=== PATIENT | female | born 1980 | race Caucasian/White ===

== ENCOUNTER 2023-05-18 18:31 | Outpatient (CLI) | payer OTHER, SELFPAY ==
--- NOTE | 2023-05-18 18:30 | CRLHL7_ITS ---
For Patients: As a result of the Century Cures Act, medical imaging exams and procedure reports are released immediately into your electronic medical record. You may view this report before your referring provider. If you have questions, please contact your health care provider. BILATERAL SCREENING MAMMOGRAM WITH COMPUTER-AIDED DETECTION TECHNIQUE: CC and MLO views were obtained. These mammographic images have been obtained using full-field digital technique. These mammographic images were interpreted with the benefit of computer-aided detection. COMPARISON FILM: 03/30/22. FINDINGS: The breasts are heterogeneously dense, which may obscure small masses IMPRESSION: There is no radiographic evidence for malignancy. ASSESSMENT: BI-RADS Category 1: Negative RECOMMENDATION: Routine screening mammogram in 1 year. A lay language report of this examination will be provided to the patient. Jose Luis Carcamo M.D. Diagnostic Radiologist [email or web address] CROW/Dictated by: Jose Luis Carcamo MD @ 05/20/2023 12:33:00 PM (Electronically Signed)
== END 2023-05-18 18:32 | disposition home or self-care (01) ==
LOC: MAMMO 18:31
PROVIDERS: PCP Physician Assistant Medical; Visit Provider Physician Assistant Medical
DX: Z12.31 Encounter for screening mammogram for malignant neoplasm of breast (principal); R92.2 Inconclusive mammogram
CPT/HCPCS: 77067

== ENCOUNTER 2023-07-28 08:43 | Outpatient (CLI) | payer OTHER, SELFPAY | END 2023-07-28 08:44 | disposition home or self-care (01) | LOC: NFLDREF 07-31 07:09 | PROVIDERS: PCP Physician Assistant Medical; Referring Provider Physician Assistant Medical; Visit Provider Emergency Medicine | DX: Z13.1 Encounter for screening for diabetes mellitus (principal); Z13.220 Encounter for screening for lipoid disorders | CPT/HCPCS: 80061; 82947 ==

== ENCOUNTER 2024-01-20 13:46 | Outpatient (CLI) | payer OTHER, SELFPAY ==
[2024-01-20 23:48] LABS: Chlamydia DNA Amplified* NOT DETECTED (No Detected); GC DNA Amplified* NOT DETECTED (No Detected)
[2024-01-23 21:37] LABS: HSV 1 Subtype by PCR Detected; HSV 2 Subtype by PCR Not Detected; Herpes Simplex Subtype Source Tissue
== END 2024-01-20 13:47 | disposition home or self-care (01) ==
PROVIDERS: PCP Physician Assistant Medical; Visit Provider Physician Assistant
DX: N89.8 Other specified noninflammatory disorders of vagina (principal)
CPT/HCPCS: 87491; 87529; 87591

== ENCOUNTER 2024-02-24 12:03 | Outpatient (CLI) | payer OTHER, SELFPAY ==
--- NOTE | 2024-02-24 12:00 | CRLHL7_ITS ---
For Patients: As a result of the Century Cures Act, medical imaging exams and procedure reports are released immediately into your electronic medical record. You may view this report before your referring provider. If you have questions, please contact your health care provider. CLINICAL HISTORY: distant history of hepatosplenomegaly, exam is normal COMPARISON: none TECHNIQUE: Real time horowitz scale imaging and color Doppler analysis was performed of the abdomen. FINDINGS: Sonographic imaging demonstrates increased size and uniform echotexture of the liver. The liver measures 19.9 cm. The spleen is of normal size. The spleen measures 10.6 cm. The pancreas appears normal. The proximal abdominal aorta and IVC appear normal. There is no evidence of ascites. The gallbladder is of normal size and there is no evidence of sludge or stones within the gallbladder lumen. The gallbladder wall measures 2.1 mm in thickness. The common bile duct measures 2.4 mm in size within the sharif hepatis. The kidneys appear symmetric. The right kidney measures 12.0 cm in length and the left kidney measures 10.9 cm. There is no evidence of a renal calculus or hydronephrosis. IMPRESSION: Hepatomegaly. Normal spleen. Remainder unremarkable. Dictated by Jose Luis Carcamo MD @ 02/25/2024 2:31:49 PM (Electronically Signed)
== END 2024-02-24 12:04 | disposition home or self-care (01) ==
LOC: US 12:04
PROVIDERS: PCP Physician Assistant Medical; Visit Provider Emergency Medicine
DX: Z87.898 Personal history of other specified conditions (principal); R16.0 Hepatomegaly, not elsewhere classified
CPT/HCPCS: 76700

== ENCOUNTER 2024-05-19 13:04 | Outpatient (CLI) | payer OTHER, SELFPAY ==
--- NOTE | 2024-05-19 13:00 | CRLHL7_ITS ---
For Patients: As a result of the Cures Act, medical imaging exams and procedure reports are released immediately into your electronic medical record. You may view this report before your referring provider. If you have questions, please contact your health care provider. BILATERAL SCREENING MAMMOGRAM WITH COMPUTER-AIDED DETECTION AND TOMOSYNTHESIS TECHNIQUE: CC and MLO views were obtained. These mammographic images have been obtained using full-field digital technique. These mammographic images were interpreted with the benefit of computer-aided detection. Breast tomosynthesis was used in this interpretation. COMPARISON FILM: 05/18/23, 03/30/22. FINDINGS: The breasts are extremely dense, which lowers the sensitivity of mammography. IMPRESSION: There is no radiographic evidence for malignancy. ASSESSMENT: BI-RADS Category 2: Benign RECOMMENDATION: Routine screening mammogram in 1 year. A lay language report of this examination will be provided to the patient. JOSE LUIS SALEH M.D. Diagnostic Radiologist [email or web address] Transcribed: 05/25/2024, 3:[address]/Dictated by: Jose Luis Saleh MD @ 05/25/2024 12:10:00 PM (Electronically Signed)
== END 2024-05-19 13:05 | disposition home or self-care (01) ==
LOC: MAMMO 13:07
PROVIDERS: PCP Physician Assistant Medical; Visit Provider Physician Assistant Medical
DX: Z12.31 Encounter for screening mammogram for malignant neoplasm of breast (principal); R92.333 Mammographic heterogeneous density, bilateral breasts
CPT/HCPCS: 77063; 77067